=== PATIENT | female | born 1930 | race Caucasian/White ===

== ENCOUNTER 2017-11-17 04:19 | Emergency (ER) | payer MEDICARE ==
[2017-11-17] MEDS ORDERED: IPRATROPIUM/ALBUTEROL (0.5MG/3MG) NEB INH ONE (04:24)
[2017-11-17] MEDS ORDERED: METHYLPREDNISOLONE PF 125MG/VIAL IVP ONE (04:24)
--- NOTE | 2017-11-17 04:30 | Emergency Department Record ---
History of Present Illness - General Chief complaint: Flu Like Symptoms Stated complaint: FLU LIKE SYMPTOMS Time Seen by Provider: 11/17/17 04:22 Source: Patient Mode of Arrival: Ambulatory Limitations: No limitations - History of Present Illness Initial comments: 87 yo male presents by EMS for possible flu like symptoms. Per EMS the patient has had some cough, fever and chills. The patient denies any symptoms. She denies any pain, shortness of breath or discomfort. She does have chronic memory issues but she denies any current symptoms or needs. She has a past smoking history with COPD. She was treated with Tamiflu November 02 per her medication list. The Care Facility was called. the patient had 3 episodes of vomiting and 2 diarrhea since the afternoon. The patient states she currently has no nausea or abdominal pain and no urge for a bowel movement. -: Unknown Location: Generalized Severity: Mild Quality: Aching Improves with: None Worsens with: None Associated Symptoms: Denies other symptoms - [place] Coma Scale Eye Response: (4) Open spontaneously Motor Response: (6) Obeys commands Verbal Response: (5) Oriented [place] Total: 15 - Related Data Home Medications Medication Instructions Recorded Confirmed Last Taken Aspirin 81 mg PO DAILY 11/17/17 11/17/17 11/16/17 Ondansetron [Zofran Odt] 4 mg PO Q8H 11/17/17 11/17/17 11/16/17 Vit C/Vit E AC/Lut/Copper/Zinc 1 tab PO DAILY 11/17/17 11/17/17 11/16/17 [PreserVision Lutein Softgel] Previous Rx's Medication Instructions Recorded Cephalexin [Keflex] 500 mg PO TID #21 cap 11/17/17 Allergies Allergy/AdvReac Type Severity Reaction Status Date / Time No Known Drug Allergies Allergy Verified 05/03/15 09:29 Travel Screening - Travel/Exposure Within Last 30 Days Have you traveled within the last 30 days?: No - Travel/Exposure Within Last Year Have you traveled outside the [place] in the last year?: No - Additonal Travel Details Have you been exposed to anyone with a communicable illness?: No - Travel Symptoms Symptom Screening: None Review of Systems Constitutional: Reports: Chills, Fever Eyes: Denies: Eye discharge ENT: Denies: Congestion, Throat pain Respiratory: Reports: Cough. Denies: Wheezes Cardiovascular: Denies: Chest pain, Edema, Syncope Endocrine: Denies: Fatigue Gastrointestinal: Denies: Abdominal pain, Diarrhea, Nausea, Vomiting Genitourinary: Denies: Dysuria Musculoskeletal: Denies: Arthralgia, Back pain, Joint swelling, Myalgia Skin: Denies: Bruising, Change in color, Rash Neurological: Denies: Confusion, Headache Psychiatric: Denies: Anxiety Hematological/Lymphatic: Denies: Blood Clots, Easy bleeding, Easy bruising, Swollen glands Past Medical History - SOCIAL HISTORY Smoking Status: Former smoker Alcohol Use: None Drug Use: None - RESPIRATORY Hx Respiratory Disorders: Yes Hx Bronchitis: Yes Hx COPD: Yes Hx Pneumonia: Yes - CARDIOVASCULAR Hx Cardio Disorders: No - NEURO Hx Neuro Disorders: Yes Hx Dementia: Yes Hx Headaches: Yes - GI Hx GI Disorders: No - Hx Genitourinary Disorders: No - ENDOCRINE Hx Endocrine Disorders: No - MUSCULOSKELETAL Hx Musculoskeletal Disorders: Yes Hx Arthritis: Yes - PSYCH Hx Psych Problems: Yes Hx Depression: Yes - HEMATOLOGY/ONCOLOGY Hx Hematology/Oncology Disorders: No Family Medical History Any Significant Family History?: Yes Hx Diabetes: Grandparents Physical Exam - General General Appearance: Alert, Cooperative, No acute distress, Other (The patient is alert, pleasant, no complaints) - Head Head exam: Normal inspection - Eye Eye exam: Normal appearance. negative: Conjunctival injection, Periorbital swelling, Scleral icterus - ENT ENT exam: Normal exam, Mucous membranes moist Ear exam: Normal external inspection Nasal Exam: Normal inspection Mouth exam: Normal external inspection Throat exam: Normal inspection - Neck Neck exam: Normal inspection, Full ROM. negative: Tenderness - Respiratory Respiratory exam: Decreased breath sounds (mild). negative: Accessory muscle use, Rales, Respiratory distress, Rhonchi, Stridor, Wheezes - Cardiovascular Cardiovascular Exam: Regular rate, Normal rhythm, Normal heart sounds - GI/Abdominal GI/Abdominal exam: Soft, Normal bowel sounds, Other (Very soft and non tender currently). negative: Distended, Guarding, Rebound, Rigid, Tenderness - Rectal Rectal exam: Deferred - exam: Deferred - Extremities Extremities exam: Normal inspection, Full ROM, Normal capillary refill. negative: Pedal edema, Tenderness - Back Back exam: Reports: Normal inspection, Full ROM. Denies: Muscle spasm, Rash noted, Tenderness - Neurological Neurological exam: Alert, Normal gait - Psychiatric Psychiatric exam: Normal affect, Normal mood. negative: Agitated, Anxious - Skin Skin exam: Dry, Intact, Normal color, Warm Course Vital Signs 11/17/17 04:21 Temperature 98.1 F Pulse Rate 102 H Respiratory 20 Rate Blood Pressure 144/84 Pulse Ox 92 L - Reevaluation(s) Reevaluation #1: The vitals were reviewed No fever. Room air pulse ox is 92% Given the patient's denial of complaints [place] was called Per the staff she has had vomiting and diarrhea this evening and felt shaky. The ambulatory care coordinator states she has about 3 episodes of vomiting and 2 diarrhea since the afternoon. The [facility] ambulatory care coordinator states there was a concern about her breathing as well that it was "low" 11/17/17 05:03 The BMP was normal Given her elevated WBC and vomiting with diarrhea CT ordered as she is a limited historian. 11/17/17 05:13 No acute changes on the hepatic panel The lipase is 96 11/17/17 05:57 UA with +3 Bacteria otherwise negative 11/17/17 05:58 CT of the abdomen and pelvis was reviewed. Gallstones otherwise negative. 11/17/17 05:59 The patient still states she is doing very well. No pain or nausea. She has not had any diarrhea or vomiting She will be given a PO trial. 11/17/17 06:00 The UA will be treated with Rocephin and a urine culture will be sent 11/17/17 06:36 The patient has tolerated the PO well without any nausea, vomiting or diarrhea. 11/17/17 06:59 Breakfast ordered If tolerated likely DC The case was signed out to Dr Zhao the patient's PCP Medical Decision Making - Lab Data Result diagrams: 11/17/17 04:37 11/17/17 04:37 Disposition Disposition: Discharge Clinical Impression: Vomiting and diarrhea, Gastroenteritis Urinary tract infection Qualifiers: Urinary tract infection type: site unspecified Hematuria presence: without hematuria Qualified Code(s): N39.0 - Urinary tract infection, site not specified Disposition: [facility] Condition: (1) Good Instructions: Urinary Tract Infection in Women (ED), Acute Nausea and Vomiting (ED) Additional Instructions: Follow up with Dr Zhao in the next week Return if vomiting or dehydration Take the Keflex as directed until gone Prescriptions: Cephalexin [Keflex] 500 mg PO TID #21 cap Forms: Patient Portal Access Time of Disposition: 07:01 Quality - Quality Measures Quality Measures: N/A - Blood Pressure Screening Does Patient Have Any of the Following: No Blood Pressure Classification: Normal BP Reading Systolic Measurement: 96 Diastolic Measurement: 63 Screening for High Blood Pressure: < Normal BP, F/U Not Required > [G8783]
[2017-11-17] MEDS ORDERED: SODIUM CHLORIDE 0.9% 500 ML IV ONE (04:32)
[2017-11-17] MEDS ORDERED: ONDANSETRON HCL IV 4 MG/2 ML VIAL IVP ONE (04:32)
[2017-11-17 04:43] LABS: HEMATOCRIT 41.8 % (35.0-47.0); HEMOGLOBIN 13.2 gm/dl (11.6-16.0); MEAN CELL VOLUME 88.7 fl (81-97); MEAN CORPUSCULAR HGB CONC 31.6 g/dl (32-36); MEAN PLATELET VOLUME 9.8 fl (7.4-10.4); PLATELET COUNT 268 K/uL (130-400); RED BLOOD COUNT 4.71 M/uL (3.80-5.40); RED CELL DISTRIBUTION WIDTH 15.9 % (11.5-14.5); WHITE BLOOD COUNT W/O DIFF 15.3 K/uL (4.2-12.2)
[2017-11-17 04:57] LABS: BLOOD UREA NITROGEN 23 mg/dL (8-23); CREATININE 0.9 mg/dL (0.5-0.9); EST GLOMERULAR FILTRATION RATE > 60 mL/min
[2017-11-17 05:00] LABS: GLUCOSE,RANDOM 155 mg/dL (74-109)
[2017-11-17 05:07] LABS: TOTAL PROTEIN 7.3 g/dL (6.6-8.7)
[2017-11-17 05:11] LABS: ALBUMIN 4.2 g/dL (4.0-5.0); ALT/SGPT 17 U/L (<33); AST/SGOT 21 U/L (10.0-35.0)
[2017-11-17 05:12] LABS: ALKALINE PHOSPHATASE 98 U/L (35-104); BILIRUBIN,DIRECT < 0.2 mg/dL (0-0.3); LIPASE 96 U/L (13-60)
[2017-11-17 05:49] LABS: URINE APPEARANCE CLEAR; URINE BILIRUBIN NEGATIVE (NEGATIVE); URINE BLOOD NEGATIVE (NEGATIVE); URINE COLOR YELLOW; URINE GLUCOSE (UA) NEGATIVE (NEGATIVE); URINE KETONE NEGATIVE (NEGATIVE); URINE LEUKOCYTE ESTERASE NEGATIVE (NEGATIVE); URINE NITRITE NEGATIVE (NEGATIVE); URINE PROTEIN NEGATIVE (NEGATIVE); URINE UROBILINOGEN 0.2 E.U./dL (0.20 - 1.00)
[2017-11-17 05:55] LABS: URINE BACTERIA 3+; URINE RBC 0 - 2 (NONE SEEN); URINE WBC 0 - 2 (0-2/hpf)
[2017-11-17] MEDS ORDERED: CEFTRIAXONE SODIUM 1 GM in 0.9 % SODIUM CHLORIDE 100ML 100 ML IVPB ONE (06:00)
--- NOTE | 2017-11-17 08:08 | Emergency Department Record ---
History of Present Illness - General Chief complaint: Flu Like Symptoms Stated complaint: FLU LIKE SYMPTOMS Time Seen by Provider: 11/17/17 04:22 Source: Patient Mode of Arrival: Ambulatory Limitations: No limitations - History of Present Illness -: Unknown Location: Generalized Severity: Mild Quality: Aching Improves with: None Worsens with: None Associated Symptoms: Denies other symptoms - [place] Coma Scale Eye Response: (4) Open spontaneously Motor Response: (6) Obeys commands Verbal Response: (5) Oriented [place] Total: 15 - Related Data Home Medications Medication Instructions Recorded Confirmed Last Taken Aspirin 81 mg PO DAILY 11/17/17 11/17/17 11/16/17 Ondansetron [Zofran Odt] 4 mg PO Q8H 11/17/17 11/17/17 11/16/17 Vit C/Vit E AC/Lut/Copper/Zinc 1 tab PO DAILY 11/17/17 11/17/17 11/16/17 [PreserVision Lutein Softgel] Previous Rx's Medication Instructions Recorded Cephalexin [Keflex] 500 mg PO TID #21 cap 11/17/17 Allergies Allergy/AdvReac Type Severity Reaction Status Date / Time No Known Drug Allergies Allergy Verified 05/03/15 09:29 Travel Screening - Travel/Exposure Within Last 30 Days Have you traveled within the last 30 days?: No - Travel/Exposure Within Last Year Have you traveled outside the [place] in the last year?: No - Additonal Travel Details Have you been exposed to anyone with a communicable illness?: No - Travel Symptoms Symptom Screening: None Review of Systems Reviewed: No additional complaints except as noted below Constitutional: Reports: Chills, Fever Eyes: Denies: Eye discharge ENT: Denies: Congestion, Throat pain Respiratory: Reports: Cough. Denies: Wheezes Cardiovascular: Denies: Chest pain, Edema, Syncope Endocrine: Denies: Fatigue Gastrointestinal: Reports: Diarrhea, Vomiting. Denies: Abdominal pain Genitourinary: Denies: Dysuria Musculoskeletal: Denies: Arthralgia, Back pain, Joint swelling, Myalgia Skin: Denies: Bruising, Change in color, Rash Neurological: Denies: Confusion, Headache Psychiatric: Denies: Anxiety Hematological/Lymphatic: Denies: Blood Clots, Easy bleeding, Easy bruising, Swollen glands Past Medical History - SOCIAL HISTORY Smoking Status: Former smoker Alcohol Use: None Drug Use: None - RESPIRATORY Hx Respiratory Disorders: Yes Hx Bronchitis: Yes Hx COPD: Yes Hx Pneumonia: Yes - CARDIOVASCULAR Hx Cardio Disorders: No - NEURO Hx Neuro Disorders: Yes Hx Dementia: Yes Hx Headaches: Yes - GI Hx GI Disorders: No - Hx Genitourinary Disorders: No - ENDOCRINE Hx Endocrine Disorders: No - MUSCULOSKELETAL Hx Musculoskeletal Disorders: Yes Hx Arthritis: Yes - PSYCH Hx Psych Problems: Yes Hx Depression: Yes - HEMATOLOGY/ONCOLOGY Hx Hematology/Oncology Disorders: No Family Medical History Any Significant Family History?: Yes Hx Diabetes: Grandparents Physical Exam - General General Appearance: Alert, Oriented x3, Cooperative, No acute distress Limitations: No limitations - Head Head exam: Normal inspection - Eye Eye exam: Normal appearance, PERRL Pupils: Normal accommodation - ENT ENT exam: Normal exam, Mucous membranes moist, Normal external ear exam, Normal orophraynx, TM's normal bilaterally Ear exam: Normal external inspection. negative: External canal tenderness Nasal Exam: Normal inspection. negative: Discharge, Sinus tenderness Mouth exam: Normal external inspection, Tongue normal Teeth exam: Normal inspection. negative: Dental caries Throat exam: Normal inspection. negative: Tonsillar erythema, Tonsillar exudate - Neck Neck exam: Normal inspection, Full ROM. negative: Tenderness - Respiratory Respiratory exam: Normal lung sounds bilaterally. negative: Respiratory distress - Cardiovascular Cardiovascular Exam: Regular rate, Normal rhythm, Normal heart sounds - GI/Abdominal GI/Abdominal exam: Soft, Normal bowel sounds. negative: Tenderness - Rectal Rectal exam: Deferred - exam: Deferred - Extremities Extremities exam: Normal inspection, Full ROM, Normal capillary refill. negative: Tenderness - Back Back exam: Reports: Normal inspection, Full ROM. Denies: Muscle spasm, Rash noted, Tenderness - Neurological Neurological exam: Alert, Normal gait, Oriented X3, Reflexes normal - Psychiatric Psychiatric exam: Normal affect, Normal mood - Skin Skin exam: Dry, Intact, Normal color, Warm Course Vital Signs 11/17/17 11/17/17 11/17/17 04:21 04:32 06:00 Temperature 98.1 F 99.4 F Pulse Rate 102 H 92 H Pulse Rate [ 104 H Jingle Writer ] Respiratory 20 20 20 Rate Blood Pressure 144/84 Blood Pressure 146/78 [Left Arm] Pulse Ox 92 L 91 L 11/17/17 06:41 Temperature Pulse Rate Pulse Rate [ 106 H Jingle Writer ] Respiratory 20 Rate Blood Pressure Blood Pressure 137/74 [Left Arm] Pulse Ox 91 L Care taken over from Dr. Murguia at 7am and patient unable to give a history because of dementia but history obtained from dr. Murguia which came from the [facility] staff and she had vomiting and diarrhea about 4 times each and diarrhear is going through [facility] at this time. Patient is pleasant and having no abdominal pain. Abd is soft and no guarding and no edema in the legs and she ate about 25 % of her breakfast. She drinking fluids nicely. She had IV fluids. straight cath UA showed 3 plus bacteria and she was given rocephin one gm and order of keflex for a UTI . Medical Decision Making - Lab Data Result diagrams: 11/17/17 04:37 11/17/17 04:37 Lab Results 11/17/17 11/17/17 11/17/17 Range/Units 04:37 04:37 04:55 WBC 15.3 H (4.2-12.2) K/uL RBC 4.71 (3.80-5.40) M/uL Hgb 13.2 (11.6-16.0) gm/dl Hct 41.8 (35.0-47.0) % MCV 88.7 (81-97) fl MCH 28.0 (27-33) pg MCHC 31.6 L (32-36) g/dl RDW 15.9 H (11.5-14.5) % Plt Count 268 (130-400) K/uL MPV 9.8 (7.4-10.4) fl Neutrophils % 95.0 H (47-80) % Band Neutrophils % 1.0 (0-5) % Eosinophils % Not Reportable Basophils % Not Reportable Lymphocytes 2.0 L (16-45) % Monocytes 1.0 (0-9) % Sodium 142 (136-145) mmol/L Potassium 4.8 H (3.4-4.5) mmol/L Chloride 104 (98-107) mmol/L Carbon Dioxide 26.0 (22-29) mmol/L Anion Gap 12.0 (7-16) BUN 23 (8-23) mg/dL Creatinine 0.9 (0.5-0.9) mg/dL Estimated GFR > 60 mL/min Random Glucose 155 H (74-109) mg/dL Calcium 8.9 (8.8-10.2) mg/dL Total Bilirubin 0.30 (0.2-1.0) mg/dL Direct Bilirubin < 0.2 (0-0.3) mg/dL AST 21 (10.0-35.0) U/L ALT 17 (<33) U/L Alkaline Phosphatase 98 (35-104) U/L Total Protein 7.3 (6.6-8.7) g/dL Albumin 4.2 (4.0-5.0) g/dL Lipase 96 H (13-60) U/L Urine Color Urine Appearance Urine pH (5.0-8.0) Ur Specific [place] (1.002-1.030) Urine Protein (NEGATIVE) Urine Glucose (UA) (NEGATIVE) Urine Ketones (NEGATIVE) Urine Blood (NEGATIVE) Urine Nitrite (NEGATIVE) Urine Bilirubin (NEGATIVE) Urine Urobilinogen (0.20 - 1.00) E.U./dL Ur Leukocyte Esterase (NEGATIVE) Urine RBC (NONE SEEN) Urine WBC (0-2/hpf) Urine Bacteria 11/17/17 Range/Units 05:45 WBC (4.2-12.2) K/uL RBC (3.80-5.40) M/uL Hgb (11.6-16.0) gm/dl Hct (35.0-47.0) % MCV (81-97) fl MCH (27-33) pg MCHC (32-36) g/dl RDW (11.5-14.5) % Plt Count (130-400) K/uL MPV (7.4-10.4) fl Neutrophils % (47-80) % Band Neutrophils % (0-5) % Eosinophils % Basophils % Lymphocytes (16-45) % Monocytes (0-9) % Sodium (136-145) mmol/L Potassium (3.4-4.5) mmol/L Chloride (98-107) mmol/L Carbon Dioxide (22-29) mmol/L Anion Gap (7-16) BUN (8-23) mg/dL Creatinine (0.5-0.9) mg/dL Estimated GFR mL/min Random Glucose (74-109) mg/dL Calcium (8.8-10.2) mg/dL Total Bilirubin (0.2-1.0) mg/dL Direct Bilirubin (0-0.3) mg/dL AST (10.0-35.0) U/L ALT (<33) U/L Alkaline Phosphatase (35-104) U/L Total Protein (6.6-8.7) g/dL Albumin (4.0-5.0) g/dL Lipase (13-60) U/L Urine Color Yellow Urine Appearance Clear Urine pH 6.0 (5.0-8.0) Ur Specific [place] 1.010 (1.002-1.030) Urine Protein Negative (NEGATIVE) Urine Glucose (UA) Negative (NEGATIVE) Urine Ketones Negative (NEGATIVE) Urine Blood Negative (NEGATIVE) Urine Nitrite Negative (NEGATIVE) Urine Bilirubin Negative (NEGATIVE) Urine Urobilinogen 0.2 (0.20 - 1.00) E.U./dL Ur Leukocyte Esterase Negative (NEGATIVE) Urine RBC 0 - 2 (NONE SEEN) Urine WBC 0 - 2 (0-2/hpf) Urine Bacteria 3+ Disposition Clinical Impression: Vomiting and diarrhea, Gastroenteritis Urinary tract infection Qualifiers: Urinary tract infection type: site unspecified Hematuria presence: without hematuria Qualified Code(s): N39.0 - Urinary tract infection, site not specified Disposition: [facility] Condition: (1) Good Instructions: Urinary Tract Infection in Women (ED), Acute Nausea and Vomiting (ED) Additional Instructions: Follow up with Dr Zhao in the next week Return if vomiting or dehydration Take the Keflex as directed until gone Prescriptions: Cephalexin [Keflex] 500 mg PO TID #21 cap Forms: Patient Portal Access Time of Disposition: 08:11 Quality - Quality Measures Quality Measures: N/A - Blood Pressure Screening Does Patient Have Any of the Following: No Blood Pressure Classification: Pre-Hypertensive BP Reading Systolic Measurement: 144 Diastolic Measurement: 84 Screening for High Blood Pressure: < Pre-Hypertensive BP, F/U Documented > [ G8950] Pre-Hypertensive Follow-up Interventions: Referral to alternative/primary care provider.
--- NOTE | 2017-11-17 15:11 | CT SCAN REPORT ---
EXAM: CT OF THE ABDOMEN AND PELVIS WITH CONTRAST HISTORY: NAUSEA, VOMITING AND DIARRHEA FOR EIGHTEEN HOURS. PRIOR APPENDECTOMY. TECHNIQUE: Contrast enhanced helical CT examination of the abdomen and pelvis was performed including delayed images through the kidneys with 100 ml of Omnipaque 300 utilized. Comparison: None. FINDINGS: Band like opacity is noted within the lateral segment of the right middle lobe consistent with atelectasis or less likely infiltrate. Minor atelectasis in the lingula also suspected. The lung bases are otherwise clear and there is no pleural or pericardial effusion. The heart is not enlarged. There is moderate atherosclerotic calcification of the left coronary artery and its branches. Evaluation of the upper/mid abdomen is mildly limited by respiratory motion. The liver, spleen, pancreas, adrenal glands, and kidneys are normal in appearance. Calcified gallstones are present without gallbladder wall thickening or pericholecystic fluid. No biliary ductal dilatation is seen. No intraabdominal nor retroperitoneal lymphadenopathy. There is diffuse atherosclerosis with mild ectasia of the distal descending thoracic aorta measuring 3.3 cm. No gross aneurysm nor dissection. The uterus is in the midline. No pelvic mass, lymphadenopathy, or free pelvic fluid is seen. No intrinsic urinary bladder abnormality is identified. There is diverticulosis of the left colon without evidence of diverticulitis. No bowel dilatation or bowel wall thickening. 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 No ventral wall hernia. There are degenerative changes scattered throughout the visualized spine associated with mild levoconvex curvature of the lumbar spine. 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 There is likely fusion of the L4 and L5 vertebral bodies, however. IMPRESSION: 1. NO CONVINCING CT EVIDENCE OF AN ACUTE INTRAABDOMINAL NOR INTRAPELVIC PROCESS. 2. CHOLELITHIASIS WITHOUT CT EVIDENCE OF ACUTE CHOLECYSTITIS. 3. SIGMOID DIVERTICULOSIS WITHOUT DIVERTICULITIS. 4. BAND LIKE/LINEAR OPACITIES WITHIN THE ANTERIOR LUNG BASES LIKELY ATELECTASIS. 5. MINOR ECTASIA OF THE DISTAL DESCENDING THORACIC AORTA MEASURING 3.3 CM IN MAXIMUM DIAMETER. JOB NUMBER: [id number] MTDD
== END 2017-11-17 09:11 ==
LOC: ER 04:19
DX: K52.9 Noninfective gastroenteritis and colitis, unspecified (principal); R11.11 Vomiting without nausea; N39.0 Urinary tract infection, site not specified; R05 Cough; J44.9 Chronic obstructive pulmonary disease, unspecified; F03.90 Unspecified dementia, unspecified severity, without behavioral disturbance, psychotic disturbance, mood disturbance, and anxiety; Z87.891 Personal history of nicotine dependence
CPT/HCPCS: 99284 ×2; 96374; 96375; 83690; 80076; 80048; 81001; 85027; 74177; 94640; Q9967; J2405; J2930

== ENCOUNTER 2017-11-25 09:37 | Observation (INO) | payer MEDICARE ==
--- NOTE | 2017-11-25 10:08 | Emergency Department Record ---
History of Present Illness - General Chief complaint: Weakness Stated complaint: VOMITING Time Seen by Provider: 11/25/17 10:01 Source: Patient, Family Mode of Arrival: Wheelchair Limitations: No limitations - History of Present Illness Initial comments: The patient is here due to waking up this AM very weak. She has had no energy today and only wants to sleep. The patient did not have those symptoms when she went to bed last night but did have an episode of vomiting and diarrhea yesterday. There is no hx of any recent fall, new medicines, fever, chills, or cough. The patient did just finish an oral Abx for a UTI. The patient does have a hx of significant dementia but that has been chronic and no different today per her daughter. When the patient wakes up she denies any MOREJON, CP, SOB, or JACLYN. MD Complaint: Generalized weakness Onset/Timin -: Hour(s) Location: Generalized Consistency: Constant Improves with: None Worsens with: None Context: Other Associated Symptoms: Denies other symptoms - Related Data Home Medications Medication Instructions Recorded Confirmed Last Taken Ibuprofen [Ibuprofen] 600 mg PO TID PRN 11/25/17 11/25/17 Unknown Psyllium Husk/Aspartame [Metamucil 3.4 gm PO ASDIR PRN 11/25/17 11/25/17 Unknown Pwd] Allergies Allergy/AdvReac Type Severity Reaction Status Date / Time No Known Drug Allergies Allergy Verified 05/03/15 09:29 Travel Screening - Travel/Exposure Within Last 30 Days Have you traveled within the last 30 days?: No Review of Systems Constitutional: Reports: Malaise. Denies: Chills, Fever Eyes: Denies: Eye discharge ENT: Denies: Congestion Respiratory: Denies: Cough, Dyspnea Cardiovascular: Denies: Chest pain Endocrine: Reports: Fatigue Gastrointestinal: Denies: Abdominal pain Genitourinary: Denies: Dysuria Musculoskeletal: Denies: Arthralgia, Back pain Past Medical History - SOCIAL HISTORY Smoking Status: Former smoker - RESPIRATORY Hx Respiratory Disorders: Yes Hx Bronchitis: Yes Hx COPD: Yes Hx Pneumonia: Yes - CARDIOVASCULAR Hx Cardio Disorders: No - NEURO Hx Neuro Disorders: Yes Hx Dementia: Yes Hx Headaches: Yes - GI Hx GI Disorders: No - Hx Genitourinary Disorders: No - ENDOCRINE Hx Endocrine Disorders: No - MUSCULOSKELETAL Hx Musculoskeletal Disorders: Yes Hx Arthritis: Yes - PSYCH Hx Psych Problems: Yes Hx Depression: Yes - HEMATOLOGY/ONCOLOGY Hx Hematology/Oncology Disorders: No Family Medical History Any Significant Family History?: Yes Hx Diabetes: Grandparents Physical Exam - General General Appearance: Alert, Cooperative, No acute distress (The patient was sleeping when I entered the room but does wake up very easily and denies any pain or discomfort. ) - Head Head exam: Atraumatic, Normocephalic - Eye Eye exam: Normal appearance, PERRL, EOMI - ENT Throat exam: Normal inspection. negative: Tonsillar erythema, Tonsillar exudate - Neck Neck exam: Normal inspection, Full ROM. negative: Meningismus (The neck is very supple.), Tenderness - Respiratory Respiratory exam: Decreased breath sounds (at the bases.). negative: Normal lung sounds bilaterally, Respiratory distress - Cardiovascular Cardiovascular Exam: Regular rate, Normal rhythm, Normal heart sounds - GI/Abdominal GI/Abdominal exam: Soft, Normal bowel sounds. negative: Tenderness - Extremities Extremities exam: Normal inspection, Full ROM, Normal capillary refill. negative: Tenderness - Neurological Neurological exam: negative: Alert, Motor sensory deficit (She is moving her arms and legs normally and equally and did get up from the wheelchair to transfer to the bed with no difficulty.), Oriented X3 (The patient is sleeping but easily arousable. She is oriented to her name only which is her baseline.) - Psychiatric Psychiatric exam: Flat affect - Skin Skin exam: negative: Rash Course Vital Signs 11/25/17 09:58 Temperature 97.3 F L Pulse Rate 68 Respiratory 20 Rate Blood Pressure 113/63 Pulse Ox 94 L - Reevaluation(s) Reevaluation #1: The patient is resting comfortably. Her evaluation has been clearly normal with no indication for any acute emergent condition that is causing her sleepiness. 11/25/17 11:56 Reevaluation #2: The patient is doing better but is mildly unsteady with walking. Due to that fact I feel it could be dangerous sending her back to [facility]. I did discuss the issues with the patient's daughter and she does agree to the plan to admit her here at [facility] overnight. I did discuss the case with Dr. Zhao and he does agree to the plan. I also did discuss the case with the daughter (DPOA) and the patient is to be a DNR. 11/25/17 13:24 Medical Decision Making - Data Complexity MDM Data: Labs Ordered and/or Reviewed, X-Ray Ordered and/or Reviewed, EKG Ordered and/or Reviewed - Lab Data Result diagrams: 11/25/17 10:25 11/25/17 10:25 - EKG Data -: EKG Interpreted by Me EKG: No Acute Changes, Normal EKG - Radiology Data Radiology results: Report reviewed (CXR: No acute changes. Head CT: No acute changes per Rad.) Disposition Disposition: Admit Clinical Impression: Altered mental status Qualifiers: Altered mental status type: unspecified Qualified Code(s): R41.82 - Altered mental status, unspecified Disposition: Still a Patient at [facility] Decision to Admit: Admit from ER Decision to Admit Date: 11/25/17 Decision to Admit Time: 13:26 Accepting Physician: Cece Time Discussed w/Accepting Physician: 13:26 Condition: (2) Stable Time of Disposition: 13:26 Quality - Quality Measures Quality Measures: N/A - Blood Pressure Screening View Details: Yes Does Patient Have Any of the Following: No Blood Pressure Classification: Normal BP Reading Systolic Measurement: 96 Diastolic Measurement: 64 Screening for High Blood Pressure: < Normal BP, F/U Not Required > [[id number]]
[2017-11-25 10:26] LABS: URINE APPEARANCE CLEAR; URINE BILIRUBIN NEGATIVE (NEGATIVE); URINE BLOOD NEGATIVE (NEGATIVE); URINE COLOR YELLOW; URINE GLUCOSE (UA) NEGATIVE (NEGATIVE); URINE KETONE NEGATIVE (NEGATIVE); URINE LEUKOCYTE ESTERASE NEGATIVE (NEGATIVE); URINE NITRITE NEGATIVE (NEGATIVE); URINE PROTEIN NEGATIVE (NEGATIVE); URINE UROBILINOGEN 0.2 E.U./dL (0.20 - 1.00)
[2017-11-25 10:33] LABS: BASO % 0.5 % (0-6); EOS % 4.5 % (0-6); GRAN % 56.1 % (47-80); HEMATOCRIT 41.3 % (35.0-47.0); HEMOGLOBIN 12.7 gm/dl (11.6-16.0); LYMPH % 26.2 % (16-45); MEAN CELL VOLUME 88.2 fl (81-97); MEAN CORPUSCULAR HEMOGLOBIN 27.1 pg (27-33); MEAN CORPUSCULAR HGB CONC 30.8 g/dl (32-36); MONO % 12.7 % (0-9); PLATELET COUNT 304 K/uL (130-400); RED BLOOD COUNT 4.68 M/uL (3.80-5.40); RED CELL DISTRIBUTION WIDTH 15.6 % (11.5-14.5); WHITE BLOOD COUNT W/O DIFF 7.8 K/uL (4.2-12.2)
[2017-11-25 10:40] LABS: URINE RBC NONE SEEN (NONE SEEN); URINE SQUAMOUS EPITHELIAL CELL 0 - 2 /hpf; URINE WBC 0 - 2 (0-2/hpf)
[2017-11-25 10:43] LABS: BLOOD UREA NITROGEN 17 mg/dL (8-23); CREATININE 1.3 mg/dL (0.5-0.9); EST GLOMERULAR FILTRATION RATE 41 mL/min
[2017-11-25 10:44] LABS: TOTAL PROTEIN 6.4 g/dL (6.6-8.7)
[2017-11-25 10:46] LABS: GLUCOSE,RANDOM 84 mg/dL (74-109)
[2017-11-25 10:49] LABS: ALB/GLOB RATIO 1.5 (1.1-1.8); ALBUMIN 3.8 g/dL (4.0-5.0); ALKALINE PHOSPHATASE 80 U/L (35-104); ALT/SGPT 16 U/L (<33); AST/SGOT 16 U/L (10.0-35.0); CREATINE PHOSPHOKINASE 45 U/L (26-192)
[2017-11-25 10:52] LABS: CKMB 2.2 ng/mL (<3.77)
[2017-11-25 10:59] LABS: THYROID STIMULATING HORMONE 2.04 uIU/mL (0.270-4.20)
[2017-11-25 11:45] LABS: ARTERIAL BLD GAS O2 SATURATION 92.8 % (95-98); ARTERIAL BLOOD GAS BASE EXCESS 2.6 mmol/L (-2 - 3); ARTERIAL BLOOD GAS HCO3 27.3 mmol/L (18-23); ARTERIAL BLOOD GAS PCO2 44.6 mmHg (35-48); CARBOXYHEMOGLOBIN 1.1 % (0-1.5); METHEMOGLOBIN 0.5 % (0.0-1.5); O2 HEMOGLOBIN 91.3 % vol (94-99); TOTAL HEMOGLOBIN 11.8 g/dl (11.6-16)
[2017-11-25 11:47] LABS: ALLEN TEST PASS
[2017-11-25] MEDS ORDERED: ACETAMINOPHEN 500 MG TABLET PO PRN (14:33)
[2017-11-25] MEDS: 0.9 % SODIUM CHLORIDE 1000ML 1,000 ML IV PRN (14:51)
[2017-11-25] MEDS: ONDANSETRON 4 MG ODT TABLET PO SCH (14:52)
[2017-11-25] MEDS ORDERED: PNEUM 13-VAL/PF 0.5 ML IM ONE (15:27)
--- NOTE | 2017-11-25 21:37 | RADIOLOGY REPORT ---
EXAM: CHEST 2 VIEWS HISTORY: WEAK. FATIGUE. TECHNIQUE: Chest, two views. COMPARISON: 05/03/15. FINDINGS: Cardiomediastinal silhouette is stable. Mild dextrocurvature of the thoracic spine. There is mild interstitial prominence, likely on account of scarring/fibrosis. No focal consolidation or pleural effusion is seen. There is probable COPD. Old left-sided rib fractures. IMPRESSION: NO ACUTE PROCESS. INTERSTITIAL SCARRING/FIBROSIS. COPD. JOB NUMBER: [id number] [facility]
--- NOTE | 2017-11-25 21:43 | CT SCAN REPORT ---
EXAM: CT OF THE BRAIN WITHOUT CONTRAST HISTORY: MENTAL STATUS CHANGE. TECHNIQUE: Sequential axial images were obtained from the foramen magnum to the vertex without contrast administration. FINDINGS: There is age appropriate cortical atrophy. There is severe periventricular small vessel ischemic change. There are remote areas of ischemia. No definitive large territorial infarct, hemorrhage, mass effect, or midline shift. No extraaxial fluid collection. The orbits, paranasal sinuses and mastoid air cells are normal. IMPRESSION: AGE APPROPRIATE CORTICAL ATROPHY WITH SEVERE PERIVENTRICULAR SMALL VESSEL ISCHEMIA. THERE ARE REMOTE AREAS OF ISCHEMIA THROUGHOUT THE BRAIN PARENCHYMA. NO LARGE TERRITORIAL INFARCT, HEMORRHAGE, MASS EFFECT OR MIDLINE SHIFT. JOB NUMBER: [id number] MTDD
[2017-11-26] MEDS: 0.9 % SODIUM CHLORIDE 1000ML 1,000 ML IV PRN (05:10)
[2017-11-26] MEDS: ONDANSETRON 4 MG ODT TABLET PO SCH ×2 (05:18→07:01)
--- NOTE | 2017-11-26 09:50 | Discharge Note ---
VTE H&P Assessment - Risk for VTE Risk for VTE: No Risk Level: Very Low Risk Assessment Date: 11/25/17 Risk Assessment Time: 15:00 VTE Orders Placed or Will Be Placed: No VTE Reason for No Prophylaxis: Not Indicated Discharge Medications - Discharge Medications Prescriptions: Albuterol Sulfate [Proair Hfa] 1 - 2 puff IH .EVERY 4-6 HOURS PRN #1 inhaler PRN Reason: Difficulty In Breathing Home Medications: Ambulatory Orders Guaifenesin/Dextromethorphan [Tussin Dm Max Liquid] 5 ml PO QID PRN 05/03/15 [ Last Taken 1 Day Ago ~05/02/15] Tiotropium [place] [Spiriva] 1 cap IH DAILY 05/03/15 [Last Taken 11/16/17] Aspirin 81 mg PO DAILY 11/17/17 [Last Taken 11/16/17] Ondansetron [Zofran Odt] 4 mg PO Q8H 11/17/17 [Last Taken 11/16/17] Vit C/Vit E AC/Lut/Copper/Zinc [PreserVision Lutein Softgel] 1 tab PO DAILY [Last Taken 11/16/17] Ibuprofen 600 mg PO TID PRN 11/25/17 [Last Taken Unknown] Psyllium Husk/Aspartame [Metamucil Pwd] 3.4 gm PO ASDIR PRN 11/25/17 [Last Taken Unknown] Acetaminophen [Tylenol 500Mg Tab] 500 mg PO Q6H PRN tablet 11/26/17 [Last Taken Unknown] Albuterol Sulfate [Proair Hfa] 1 - 2 puff IH .EVERY 4-6 HOURS PRN #1 inhaler [Last Taken Unknown] Discharge Note - Date Date of Discharge Note: 11/26/17 Disposition: [facility] Condition: (2) Stable Instructions: Weakness (ED) Additional Instructions: follow up with Dr. Zhao monday at [facility] in the afternoon Forms: Patient Portal Access Activity at Discharge: Increase Activity as Tolerated
[2017-11-26] MEDS ORDERED: ASPIRIN 81 MG CHEWABLE TABLET PO SCH (10:00)
[2017-11-26] MEDS ORDERED: UMECLIDINIUM BROMIDE (INCRUSE) 62.5MCG IH SCH (10:00)
--- NOTE | 2017-11-27 08:00 | Discharge Summary ---
DATE OF ADMISSION: 11/25/2017 DATE OF DISCHARGE: 11/26/2017 DISCHARGE DIAGNOSES: 1. Viral syndrome. 2. Dehydration. 3. Increased confusion secondary to both viral syndrome and dehydration. 4. COPD, stable. 5. Dementia. ATTENDING PHYSICIAN: Tristen Zhao DO REASON FOR HOSPITALIZATION: This 87-year-old female came in to the Emergency Department because of weakness, increasing confusion. Normally, she is very ambulatory. She was sleeping a lot. She had diarrhea the day before, a fairly large case of it. A little viral gastroenteritis was going through ICA, and she was very tired and lethargic. She was evaluated in the Emergency Department by Dr. Squires, and he was concerned she could fall down and hurt herself. He felt she should be put in the hospital for observation and to increase her ambulatory ability. SIGNIFICANT FINDINGS FROM EXAMINATION: The chest x-ray showed interstitial scarring, COPD, no acute process. CT of the head was negative. LABORATORY: WBC was 7800, hemoglobin was 12.7, blood gas showing pH of 7.4, pCO2 of 44, pO2 of 61. Potassium was 4.4, sodium was 141, chloride was 101. Liver enzymes are normal. Calcium was 8.7, slightly low. Creatinine was 1.3, BUN was 17. Cardiac enzyme negative. C-reactive protein negative. Total protein was a little low at 6.4. TSH was normal at 2.04. Urine is normal. EKG showing normal sinus rhythm. No acute changes. THERAPY PROVIDED: IV fluids and encouraged her to ambulate. HOSPITAL COURSE: She was much better almost immediately before she got to the floor. She is doing better. She got up and walked to the bathroom without assistance. CONDITION AT DISCHARGE: Much improved. DISCHARGE INSTRUCTIONS: 1. Follow up with Dr. Zhao on Monday afternoon, tomorrow. 2. Continue her home medications of Spiriva 1 puff daily, ProAir 2 puffs every 4-6 hours. Continue the aspirin 81 mg a day. Fiber one scoop a day. Ibuprofen 600 mg 3 times a day p.r.n., Zofran 4 mg 3 times a day p.r.n. nausea. Robitussin cough syrup p.r.n. MTDD
--- NOTE | 2017-11-27 08:00 | History and Physical Report ---
CHIEF COMPLAINT/HISTORY OF PRESENT ILLNESS: Weakness, sleepiness, slurred words, and not communicat ing. Patient, however, was answering questions appropriately when she got to the emergency departme . She is a patient at [facility], and they felt she had a change of mental status. When she got to the emergency department, she answered the nurses' questions appropriately, except that she has dementia. She did get into bed with little assistance. She did fall asleep immediately once in bed. It was reported from the staff at [facility] that she had vomiting and diarrhea yesterday, but recently finished an antibiotic for a urinary tract infection. She was evaluated by Dr. Squires, and he was concerned because when she got up to walk she was unstable, and he felt she would fall down and hurt herself, so he was concerned and put her in as an observation patient. She is a Do Not Resuscitate patient. Per daughter, she has been at [facility] since at least 2014. She is in the memory care unit, and she put her shoes on backwards and her pants on backwards today, according to Dr. Squires. She uses oxygen, and she is a long-standing COPD patient, ex-smoker. She has a [id number] history of smoking. She is not allowed to smoke at [facility], but occasionally they had her sneaking out to try to smoke outside. Her clinical impression by Dr. Squires was altered mental status; however, she has dementia. PAST MEDICAL HISTORY: COPD, tobacco use disorder. PAST SURGICAL HISTORY: Appendectomy. CURRENT MEDICATIONS: On admission: 1. Aspirin 81 mg a day. 2. Keflex 500 mg 3 times a day for 7 days. Finished those on 11/24/2017. 3. MTCOL 1/2 teaspoons by mouth for constipation. Mineral oil, I believe, is what that is. 4. PreserVision Caps 1 capsule twice a day. 5. Spiriva once a day. 6. Fiber, Metamucil, 1 scoop a day. 7. Ibuprofen 600 mg 3 times a day for pain and headaches p.r.n. 8. Zofran 4 mg 3 times a day p.r.n. nausea and vomiting. 9. ProAir 2 puffs every 6 hours as needed for dyspnea. 10. Robitussin DM cough syrup 5 ml 4 times a day p.r.n. ALLERGIES: As stated. FAMILY/SOCIAL HISTORY: She is a resident of [facility]. She used to smoke but quit in about November [address] [facility]. She drinks no alcohol. SYSTEMS REVIEW: Unable to obtain because of mental status. She is confused. Otherwise, as mentioned in the History, and from staff will get History of Present Illness. PHYSICAL EXAMINATION: VITAL SIGNS: An 87-year-old female. Weight 110 pounds. Temp 97.8. Pulse 77. Blood pressure 110/67. Respiratory rate 18. Pulse ox 94% on room air. HEENT: Pupils equal, round, and reactive to light and accommodation. Extraocular muscles intact. Throat is clear. Nose is clear. Tympanic membranes clear. NECK: Supple. No jugular venous distention. No hepatojugular reflux. No carotid bruits. Thyroid is smooth. LUNGS: Breath sounds equal bilaterally. Some wheezing bilaterally. HEART: Regular rate and rhythm without murmurs, clicks, rubs, or gallops. ABDOMEN: Soft, nontender. No hepatosplenomegaly. No masses. Bowel sounds are active. No bruits. EXTREMITIES: No pitting edema. No cyanosis. No clubbing. Full range of motion. Peripheral pulses good. BREASTS/GEOPHYSICAL DRAFTER/RECTAL: Deferred. NEUROLOGIC: Cranial nerves 2 through 12 intact. No gross defects. Sensation normal. Strength intact. Normal deep tendon reflexes, equal bilaterally. Babinski negative. MENTAL STATUS: She is confused. She is alert but disoriented to time and place, and she knows her name. IMPRESSION: 1. Dehydration. 2. Dementia with possible altered mental status change; however, she may be just fatigued. 3. History of COPD. 4. Possible viral syndrome, recovering. PLAN: Observation, IV hydration at 75 ml an hour, and further evaluation tomorrow. MTDD
== END 2017-11-26 11:00 ==
LOC: ER 09:37 → MEDSURG 14:14
PROVIDERS: ADMIT Emergency Medicine; ATTEND Emergency Medicine
DX: E86.0 Dehydration (principal); B34.9 Viral infection, unspecified; R53.1 Weakness; R11.10 Vomiting, unspecified; R19.7 Diarrhea, unspecified; J44.9 Chronic obstructive pulmonary disease, unspecified; F03.90 Unspecified dementia, unspecified severity, without behavioral disturbance, psychotic disturbance, mood disturbance, and anxiety; F32.9 Major depressive disorder, single episode, unspecified
CPT/HCPCS: 99285 ×2; 82550; 85025; 82375; 86140; 82553; 80053; 81001; 82803; 84443; 84484; 71046; 70450; 36600; 93005; 93010; 90670; G0378 ×2